=== PATIENT | female | born 1950 | race Caucasian/White ===

== ENCOUNTER 2017-12-16 06:20 | Day surgery (SDC) | payer OTHER ==
[~2017-12-16] VITALS: Ht 172.7 cm; Wt 108.9 kg
[2017-12-16] VITALS (15 sets, daily range): BP systolic 102–140; BP diastolic 49–79
[~2017-12-16 06:20] MED LIST: Clindamycin 600mg 50 ML IV ONE; celeBREX 200mg Cap **SURGERY PATIENTS ONLY ORAL ONE; oxyCONTIN 20mg tab ORAL ONE
[2017-12-16] MEDS ORDERED: Dexamethasone 4mg/ml vial ONE (06:21)
[2017-12-16] MEDS ORDERED: Zemuron 50mg/5ml Inj IV ONE (06:21)
[2017-12-16] MEDS ORDERED: Sterile Water Irrig 1000ml IRRIG ONE (06:21)
[2017-12-16] MEDS ORDERED: NS Irrig 1000ml ONE (06:21)
[2017-12-16] MEDS ORDERED: Metoclopramide 10mg/2ml Inj ONE (06:21)
[2017-12-16] MEDS ORDERED: MONTELUKAST SOD10 MG ORAL (07:14)
[2017-12-16] MEDS ORDERED: SIMVASTATIN20 MG ORAL (07:14)
[2017-12-16] MEDS ORDERED: SPIRIVA18 MCG INH (07:14)
[2017-12-16] MEDS ORDERED: NORTRIPTYLINE H75 MG PO (07:14)
[2017-12-16] MEDS ORDERED: VENLAFAXINE HC150 MG ORAL (07:14)
[2017-12-16] MEDS ORDERED: NAMENDA10 MG ORAL (07:14)
[2017-12-16] MEDS ORDERED: CALCIUM600 M1 PO (07:14)
[2017-12-16] MEDS ORDERED: ADVAIR 250-501 EACH INH (07:14)
[2017-12-16] MEDS ORDERED: [UNRECOGNIZED DRUG - OTHER] PO (07:14)
[2017-12-16] MEDS ORDERED: ZANTAC150 MG ORAL (07:14)
--- NOTE | 2017-12-16 07:36 | Pre-Procedure Note/Attestation ---
Pre-Procedure Note/Attestation Complete Prior to Procedure Planned Procedure: left Procedure Narrative: Shoulder arthroscopy, sad Indications for Procedure Pre-Operative Diagnosis: left shoulder impingement, possible labral derangement Attestation I attest that I discussed the nature of the procedure; its benefits; risks and complications; and alternatives (and the risks and benefits of such alternatives ), prior to the procedure, with the patient (or the patient's legal human resources hr representative). I attest that, if there was a reasonable possibility of needing a blood transfusion, the patient (or the patient's legal human resources hr representative) was given the [facility] standardized written summary, pursuant to the [place] Blood Safety Act ([place] Health and Safety Code # 1645, as amended). I attest that I re-evaluated the patient just prior to the surgery and that there has been no change in the patient's H&P, except as documented below: Ryan Driscoll MD December 16, 2017 07:36
--- NOTE | 2017-12-16 07:38 | Operative Note - PDOC ---
Operative Note Operative Note Pre-op Diagnosis: left shoulder impingement, possible labral derangement Procedure: left shoulder arthroscopy, sad, possible labral repair Post-op Diagnosis: same as pre-op plus Operative Findings: consistent w/pre-op dx studies Anesthesia: regional Specimen: none Complications: none Condition: stable Implant(s) used?: No Ryan Driscoll MD December 16, 2017 07:38
[2017-12-16] MEDS ORDERED: D5 1/2NS 1,000 ML IV SCH (07:45)
[2017-12-16] MEDS ORDERED: Tylenol #3 tab (300mg/30mg) ORAL PRN (07:45)
[2017-12-16] MEDS ORDERED: Norco 5mg/325mg tab ORAL PRN (07:45)
[2017-12-16] MEDS ORDERED: fentaNYL 100 mcg/2 mL IV ONE ×2 (07:52→08:34)
[2017-12-16] MEDS ORDERED: Midazolam 2mg/2ml Inj ONE ×3 (07:52→09:56)
[2017-12-16] MEDS ORDERED: EPINEPHrine 1mg/1ml Amp ONE (08:32)
[2017-12-16] MEDS ORDERED: Bupivacaine 0.25% Inj 30ml INJ ONE (08:32)
[2017-12-16] MEDS ORDERED: Lidocaine 1% 10mg/ml/Epi 0.005mg/ml 30ml vial INJ ONE (08:32)
[2017-12-16] MEDS ORDERED: Lidocaine 1% MPF 10mg/ml 5ml ONE (08:34)
[2017-12-16] MEDS ORDERED: Propofol 200mg/20ml IV ONE (08:34)
[2017-12-16] MEDS ORDERED: LR 1000ml 1,000 ML IVLG SCH (09:10)
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
[2017-12-16] MEDS ORDERED: fentaNYL 100 mcg/2 mL IV PRN (09:15)
[2017-12-16] MEDS ORDERED: DiphenhydrAMINE 50mg/ml Inj IVP PRN (09:15)
[2017-12-16] MEDS ORDERED: NS Irrig 4000ml IRRIG ONE (09:15)
[2017-12-16] MEDS ORDERED: LORazepam Inj 2mg/ml 1ml IV PRN (09:15)
[2017-12-16] MEDS ORDERED: Midazolam 2mg/2ml Inj IVP PRN (09:15)
--- NOTE | 2017-12-16 09:44 | Immediate Post-Op Evaluation ---
Immediate Post-Op Evalulation Immediate Post-Op Evalulation Procedure: Left shoulder arthroscopy Date of Evaluation: December 16, 2017 Time of Evaluation: 10:50 IV Fluids: 600 Blood Products: 0 Estimated Blood Loss: min Urinary Output: 0 Blood Pressure Systolic: 115 Blood Pressure Diastolic: 66 Pulse Rate: 72 Respiratory Rate: 17 O2 Sat by Pulse Oximetry: 96 Temperature (Fahrenheit): 98.2 Pain Score (1-10): 0 Nausea: No Vomiting: No Complications 0 Patient Status: awake, reacts, patent, none Hydration Status: adequate Drug: Clindamycin 600mg Given Within 1 Hr of Incision: Yes Time Given: 09:30 MIGUEL ÁNGEL DEGROOT M.D. December 16, 2017 09:44
--- NOTE | 2017-12-16 09:46 | 48 Hour Post Anesthesia Eval ---
Post Anesthesia Evaluation Procedure: Left shoulder arthroscopy Date of Evaluation: December 16, 2017 Time of Evaluation: 12:50 Blood Pressure Systolic: 121 0: 49 Pulse Rate: 75 Respiratory Rate: 18 Temperature (Fahrenheit): 97.3 O2 Sat by Pulse Oximetry: 97 Airway: patent Nausea: No Vomiting: No Pain Intensity: 0 Hydration Status: adequate Cardiopulmonary Status: at baseline Mental Status/LOC: patient returned to baseline Post-Anesthesia Complications: 0 Follow-up care needed: ready to discharge MIGUEL ÁNGEL DEGROOT M.D. December 16, 2017 09:46
[2017-12-16] MEDS ORDERED: Ketamine 500mg Inj ONE (09:56)
[2017-12-16] MEDS ORDERED: Acetaminophen (Non formulary) 100 ML IV SCH (10:00)
--- NOTE | 2017-12-16 18:46 | Operative Note - Dictated ---
DATE OF OPERATION: 12/16/2017 PREOPERATIVE DIAGNOSES: 1. Left shoulder posterior labral tear. 2. Left shoulder biceps tenosynovitis. 3. Left shoulder impingement. 4. Left shoulder rotator cuff tendinosis. POSTOPERATIVE DIAGNOSES: 1. Left shoulder anterior and superior labral tear. 2. Left shoulder partial articular-sided rotator cuff tear. 3. Left shoulder impingement syndrome. PROCEDURE: 1. Left shoulder diagnostic arthroscopy. 2. Debridement of anterior/superior labral tear. 3. Debridement/repair of partial articular-sided rotator cuff tear. 4. Subacromial decompression bursectomy. SURGEON: Ryan Driscoll M.D. ANESTHESIA: Interscalene with general. INDICATION FOR PROCEDURE: The patient is a pleasant female who has had significant left shoulder pain and difficulty with overhead activities. She had MRI, which showed evidence of possible posterior labral tear as well as tenosynovitis along with some impingement on radiographic findings. After failing conservative treatment, she elected to undergo left shoulder diagnostic arthroscopy with possible labral repair versus debridement with concurrent subacromial decompression bursectomy. Risks, limitations, expectations, complications of procedure were discussed in detail. All questions were addressed. DESCRIPTION OF PROCEDURE: After informed consent was obtained, the patient was brought to the operating room and placed supine under interscalene with general anesthesia. The patient was then carefully placed in beach-chair position. Left shoulder was prepped and draped in sterile manner. Time-out was performed. A posterolateral stab incision was then made. Trocar was introduced in the shoulder joint. No significant chondral damage. Noted some erythema of the anterior labrum and tearing that extended to the superior labrum. Biceps tendon appeared to be intact. The undersurface of the rotator cuff had a partial articular-sided rotator cuff tear. Medial working portal was established and debridement of the labral tear was performed anterior and superior down to stable rim of tissue. The superior labrum appeared to be intact and did not require formal fixation with an anchor. The undersurface of the supraspinatus identified. Once the tear was visualized, the debridement of the articular-sided partial rotator cuff tear was performed. At this point, the camera was placed in the anterior portal. Posterior labrum was noted to be intact. The camera was then placed in the subacromial space. The hypertrophic bursal tissue was all debrided. The undersurface of the acromion was identified. Acromioplasty was started from lateral to medial and completed posterior to anterior. Once this was done, the bursal side of the rotator cuff was evaluated and noted to be intact. At this point, the instruments were removed. Portal sites were closed with 3-0 Monocryl sutures. Steri-Strips and sterile dressing were applied. The patient was awoken and taken to recovery room with stable vital signs. ESTIMATED BLOOD LOSS: None. COMPLICATIONS: None. SPECIMENS: None. IMPLANTS: None. Ryan Driscoll M.D. DR: Chelsy JOB#: [id number] CC:
== END 2017-12-16 13:20 | disposition home or self-care (01) ==
LOC: SUR 06:20
DX: S43.402A Unspecified sprain of left shoulder joint, initial encounter (principal); M75.112 Incomplete rotator cuff tear or rupture of left shoulder, not specified as traumatic; M75.42 Impingement syndrome of left shoulder; E78.5 Hyperlipidemia, unspecified; K21.9 Gastro-esophageal reflux disease without esophagitis; F41.9 Anxiety disorder, unspecified; F32.9 Major depressive disorder, single episode, unspecified; Z85.42 Personal history of malignant neoplasm of other parts of uterus; Z88.0 Allergy status to penicillin; Z87.891 Personal history of nicotine dependence
CPT/HCPCS: 29823; J0171; J0690; J1100; J2250; J2405; J2704; J2765; J3010; J3490; S0077

== ENCOUNTER 2018-03-31 07:09 | Day surgery (SDC) | payer OTHER ==
[2018-03-31] VITALS (9 sets, daily range): BP systolic 111–145; BP diastolic 65–76
[~2018-03-31] VITALS: Ht 172.7 cm; Wt 115.2 kg
[~2018-03-31 07:09] MED LIST changes: +ADVAIR 250-501 EACH INH; +CALCIUM600 M1 PO; +MONTELUKAST SOD10 MG ORAL; +NAMENDA10 MG ORAL; +NORTRIPTYLINE H75 MG PO; +SIMVASTATIN20 MG ORAL; +SPIRIVA18 MCG INH; +VENLAFAXINE HC150 MG ORAL; +ZANTAC150 MG ORAL; +[UNRECOGNIZED DRUG - OTHER] PO
--- NOTE | 2018-03-31 10:44 | Operative Note - PDOC ---
Operative Note Operative Note Pre-op Diagnosis: left wrist painful hardware Procedure: see op report Post-op Diagnosis: same as pre-op Anesthesia: MAC Specimen: none Complications: none Condition: stable Estimated Blood Loss: none Implant(s) used?: No Ryan Driscoll MD Mar 31, 2018 10:44
--- NOTE | 2018-03-31 10:44 | Pre-Procedure Note/Attestation ---
Pre-Procedure Note/Attestation Complete Prior to Procedure Planned Procedure: left Procedure Narrative: wrist removal painful hardware Indications for Procedure Pre-Operative Diagnosis: left wrist painful hardware Attestation I attest that I discussed the nature of the procedure; its benefits; risks and complications; and alternatives (and the risks and benefits of such alternatives ), prior to the procedure, with the patient (or the patient's legal healthcare sales representative). I attest that, if there was a reasonable possibility of needing a blood transfusion, the patient (or the patient's legal healthcare sales representative) was given the [facility] standardized written summary, pursuant to the [place] Blood Safety Act ([place] Health and Safety Code # 1645, as amended). I attest that I re-evaluated the patient just prior to the surgery and that there has been no change in the patient's H&P, except as documented below: Ryan Driscoll MD Mar 31, 2018 10:44
[2018-03-31] MEDS ORDERED: D5 1/2NS 1,000 ML IV SCH (10:45)
[2018-03-31] MEDS ORDERED: HYDROmorphone 1mg/ml Carpuject SUBQ PRN (10:45)
[2018-03-31] MEDS ORDERED: Tylenol #3 tab (300mg/30mg) ORAL PRN (10:45)
[2018-03-31] MEDS ORDERED: Norco 5mg/325mg tab ORAL PRN (10:45)
[2018-03-31] MEDS ORDERED: Morphine Sulfate PF 10 ML ONE (10:50)
[2018-03-31] MEDS ORDERED: Bacitracin 50000 Units Vial ONE (10:51)
[2018-03-31] MEDS ORDERED: NeoSporin Gu Irrig 1ml Amp IRRIG ONE (10:51)
[2018-03-31] MEDS ORDERED: Kenalog-40 1ml Vial ONE (10:51)
[2018-03-31] MEDS ORDERED: Ketorolac 30mg Inj ONE (10:51)
[2018-03-31] MEDS ORDERED: Bupivacaine 0.5% Inj 30 ml vial INJ ONE ×2 (10:51→12:00)
[2018-03-31] MEDS ORDERED: celeBREX 200mg Cap **SURGERY PATIENTS ONLY ORAL ONE (11:20)
[2018-03-31] MEDS ORDERED: oxyCONTIN 20mg tab ORAL ONE (11:20)
[2018-03-31] MEDS ORDERED: NS Irrig 1000ml ONE (11:30)
[2018-03-31] MEDS ORDERED: LR 1000ml ONE (11:30)
[2018-03-31] MEDS ORDERED: Ketorolac 30mg Inj IM ONE (12:00)
[2018-03-31] MEDS ORDERED: Bacitracin 50000 Units Vial IRRIG ONE (12:00)
[2018-03-31] MEDS ORDERED: NS Irrig 4000ml IRRIG ONE (12:00)
[2018-03-31] MEDS ORDERED: Kenalog-40 1ml Vial INJ ONE (12:00)
[2018-03-31] MEDS ORDERED: Duramorph PF 10mg/10ml amp IT ONE (12:00)
--- NOTE | 2018-03-31 12:07 | Anethesia Preoperative Eval ---
Anesthesia Pre-op PMH/ROS General Date of Evaluation: Mar 31, 2018 Time of Evaluation: 11:20 Anesthesiologist: Amari ASA Score: ASA 3 Mallampati Score Class I : Soft palate, uvula, fauces, pillars visible Class II: Soft palate, uvula, fauces visible Class III: Soft palate, base of uvula visible Class IV: Only hard plate visible Mallampati Classification: Class II Surgeon: Americo Diagnosis: L wrist pain Surgical Procedure: L wrist hardwear removal Anesthesia History: none Family History: no anesthesia problems Allergies: Coded Allergies: PENICILLINS (Verified Allergy, Unknown, 12/15/17) Past Medical History Cardiovascular: Denies: HTN, CAD, [place], valve dz, arrhythmia, other Pulmonary: Reports: COPD; Denies: asthma, FELIPA, other Gastrointestinal/Genitourinary: Reports: GERD; Denies: CRI, ESRD, other Neurologic/Psychiatric: Reports: depression/anxiety; Denies: dementia, CVA, TIA, other Endocrine: Denies: DM, hypothyroidism, steroids, other HEENT: Denies: cataract (L), cataract (R), glaucoma, [place] (L), [place] (R), other Hematology/Immune: Reports: anemia Musculoskeletal/Integumentary: Reports: DJD; Denies: OA, RA, DDD, edema, other Other: obesity PMH Narrative: as above PSxH Narrative: Hysterectomy, shoulder, wrist ORIF Anesthesia Pre-op Phys. Exam Physician Exam Last Vital Signs Date Time Temp Pulse Resp B/P (MAP) Pulse Ox O2 Delivery O2 Flow Rate FiO2 03/31/18 11:34 Room Air 03/31/18 11:31 98.1 83 18 142/74 (96) 94 98.1 Constitutional: NAD Neurologic: CN 2-12 intact Cardiovascular: RRR, no M/R/G Respiratory: other - some wheezing bilaterally Gastrointestinal: other - obesity Airway Exam Mallampati Score: Class III MO: limited Neck: short ROM: limited Teeth: missing Dentures: no upper, no lower Anesthesia Pre-op A/P Labs see chart Studies Pre-op Studies: EKG - NSR Risk Assessment & Plan Assessment: ASA 3 Plan: GA with LMA Status Change Before Surgery: No Pre-Antibiotics Drug: Ancef 1gr. Given Within 1 Hr of Incision: Yes Time Given: 11:54 Mario Fitzpatrick MD Mar 31, 2018 12:07
[2018-03-31] MEDS ORDERED: LR 1000ml 1,000 ML IVLG SCH (12:08)
[2018-03-31] MEDS ORDERED: fentaNYL 100 mcg/2 mL IV PRN (12:15)
[2018-03-31] MEDS ORDERED: DiphenhydrAMINE 50mg/ml Inj IVP PRN (12:15)
[2018-03-31] MEDS ORDERED: Ketorolac 30mg Inj IV PRN (12:15)
[2018-03-31] MEDS ORDERED: Midazolam 2mg/2ml Inj IVP PRN (12:15)
[2018-03-31] MEDS ORDERED: Lidocaine 1% MPF 10mg/ml 5ml ONE (12:44)
[2018-03-31] MEDS ORDERED: Propofol 200mg/20ml IV ONE (12:44)
--- NOTE | 2018-03-31 13:33 | Immediate Post-Op Evaluation ---
Immediate Post-Op Evalulation Immediate Post-Op Evalulation Procedure: Removal of retained hardwear L wrist Date of Evaluation: Mar 31, 2018 Time of Evaluation: 13:31 IV Fluids: 800 Blood Products: none Estimated Blood Loss: min Urinary Output: none Blood Pressure Systolic: 140 Blood Pressure Diastolic: 74 Pulse Rate: 86 Respiratory Rate: 20 O2 Sat by Pulse Oximetry: 97 Temperature (Fahrenheit): 97.6 Pain Score (1-10): 2 Nausea: No Vomiting: No Complications none L axillary block at the end of surgery by surgeon request Patient Status: reacts, patent, none Hydration Status: adequate Mario Fitzpatrick MD Mar 31, 2018 13:33
--- NOTE | 2018-03-31 16:20 | 48 Hour Post Anesthesia Eval ---
Post Anesthesia Evaluation Procedure: Removal of retained hardwear L wrist Date of Evaluation: Mar 31, 2018 Time of Evaluation: 16:19 Blood Pressure Systolic: 145 0: 67 Pulse Rate: 68 Respiratory Rate: 20 Temperature (Fahrenheit): 97.8 O2 Sat by Pulse Oximetry: 99 Airway: patent Nausea: No Vomiting: No Pain Intensity: 2 Hydration Status: adequate Cardiopulmonary Status: stable Mental Status/LOC: patient returned to baseline Follow-up Care/Observations: n/a Post-Anesthesia Complications: none Follow-up care needed: ready to discharge Mario Fitzpatrick MD Mar 31, 2018 16:20
--- NOTE | 2018-03-31 21:15 | Operative Note - Dictated ---
DATE OF OPERATION: 03/31/2018 PREOPERATIVE DIAGNOSES: 1. Painful left wrist hardware, status post ORIF. 2. Left distal radius malunion. PROCEDURE: 1. Left wrist removal of painful hardware. 2. of tenosynovitis, left wrist flexor tendon. SURGEON: Ryan Driscoll M.D. ANESTHESIA: MAC with local. INDICATION FOR PROCEDURE: The patient is a pleasant female with a significant injury to her left wrist, underwent open reduction and internal fixation, had continued pain in the volar aspect of the left wrist. The patient was noted to have malunion of the lunate facet, but also concerned that maybe the hardware was causing some pain. Therefore, she elected to undergo removal of the hardware, tenolysis of the flexor tendons. Risks, limitations, expectations, and complications of procedure were discussed in detail including continued pain, need for future surgery, risk of anesthesia, medical complications, etc. All questions were addressed. DESCRIPTION OF PROCEDURE: After informed consent was obtained, the patient was brought to the operating room. The patient was placed under general anesthesia. The previous skin incision was marked out. Esmarch was used to exsanguinate the extremity. The skin was incised. Subcutaneous flaps were created of the flexor tendon. The FCR tendon was identified and mobilized. There were significant adhesions, this was on the volar surface, which were released. Once that was done, careful dissection to the volar surface of the wrist was performed. The plate was then identified. All the screws and plates were removed with care. Once the hardware was removed, it was noted that the lunate fossa was displaced volarly, however, it was fused. At this point, the wound was copiously irrigated. The subcutaneous tissue was approximated with 2-0 Vicryl and 3-0 Monocryl sutures. Steri-Strips and a sterile dressing were applied. The patient was awoken and taken to recovery room with stable vital signs. ESTIMATED BLOOD LOSS: None. COMPLICATIONS: None. SPECIMENS: None. EXPLANTS: Include a volar plate with multiple screws. Ryan Driscoll M.D. DR: Chelsy JOB#: [id number] CC:
== END 2018-03-31 15:00 | disposition home or self-care (01) ==
LOC: SUR 07:09
DX: Z47.2 Encounter for removal of internal fixation device (principal); S52.502A Unspecified fracture of the lower end of left radius, initial encounter for closed fracture; J45.909 Unspecified asthma, uncomplicated; K21.9 Gastro-esophageal reflux disease without esophagitis; R09.82 Postnasal drip; E66.9 Obesity, unspecified; E78.5 Hyperlipidemia, unspecified; M19.90 Unspecified osteoarthritis, unspecified site; D64.9 Anemia, unspecified; J44.9 Chronic obstructive pulmonary disease, unspecified; F32.9 Major depressive disorder, single episode, unspecified; F41.9 Anxiety disorder, unspecified; Z87.891 Personal history of nicotine dependence; Z85.42 Personal history of malignant neoplasm of other parts of uterus; Z90.710 Acquired absence of both cervix and uterus; Z90.722 Acquired absence of ovaries, bilateral; Z90.79 Acquired absence of other genital organ(s); Z88.0 Allergy status to penicillin
CPT/HCPCS: 20680; 25295; J0690; J1885; J2250; J2274; J2704; J3010; J3301; J3490; J7120; 94003; 94150

== ENCOUNTER 2018-05-11 16:34 | Inpatient (IN) | payer OTHER ==
[~2018-05-11] VITALS: Ht 172.7 cm; Wt 115.9 kg
[~2018-05-11 16:34] MED LIST changes: -Clindamycin 600mg 50 ML IV ONE; -celeBREX 200mg Cap **SURGERY PATIENTS ONLY ORAL ONE; -oxyCONTIN 20mg tab ORAL ONE
[2018-05-11 16:59] VITALS: BP 143/74
[2018-05-11] MEDS ORDERED: DOXYCYCLINE HY100 M2 PO (17:04)
[2018-05-11] MEDS ORDERED: Albuterol ud Inhalation HHN ONE (17:15)
[2018-05-11] MEDS ORDERED: Solu-MEDROL 125mg Inj IVP ONE (17:30)
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
[2018-05-11] MEDS: Ipratropium 0.02% Inh Soln 2.5ml UD HHN SCH ×3 (17:43→18:19)
[2018-05-11] MEDS: Albuterol ud Inhalation HHN SCH ×3 (17:43→18:19)
[2018-05-11 17:51] LABS: ANION GAP 12 mmol/L (5-15); BLOOD UREA NITROGEN 15 mg/dL (7-18); CALCIUM 9.1 MG/DL (8.5-10.1); CARBON DIOXIDE 23 MMOL/L (21-32); CHLORIDE 101 MMOL/L (98-107); SODIUM 136 MMOL/L (136-145)
[2018-05-11 17:54] LABS: BASOPHILS % (AUTO) 0.8 % (0.0-2.0); EOSINOPHILS % (AUTO) 0.4 % (0.0-3.0); HEMATOCRIT 37.3 % (37.0-47.0); HEMOGLOBIN 12.6 G/DL (12.0-16.0); LYMPHOCYTES % (AUTO) 9.8 % (20.0-45.0); MEAN CORPUSCULAR VOLUME 86 FL (80-99); MONOCYTES % (AUTO) 10.8 % (1.0-10.0); NEUTROPHILS % (AUTO) 78.1 % (45.0-75.0); PLATELET COUNT 275 K/UL (150-450); RED BLOOD COUNT 4.36 M/UL (4.20-5.40); RED CELL DISTRIBUTION WIDTH 12.8 % (11.6-14.8); WHITE BLOOD COUNT 15.1 K/UL (4.8-10.8)
[2018-05-11 17:55] LABS: ALANINE AMINOTRANSFERASE 28 U/L (12-78); ALBUMIN 3.4 G/DL (3.4-5.0); ALBUMIN/GLOBULIN RATIO 0.7 (1.0-2.7); ALKALINE PHOSPHATASE 118 U/L (46-116); ASPARTATE AMINO TRANSFERASE 15 U/L (15-37); BILIRUBIN,TOTAL 0.5 MG/DL (0.2-1.0)
[2018-05-11 19:57] LABS: APPEARANCE,URINE CLEAR; BILIRUBIN, URINE NEGATIVE (NEGATIVE); COLOR,URINE PALE YELLOW; GLUCOSE, URINE (UA) NEGATIVE (NEGATIVE); KETONES,URINE NEGATIVE (NEGATIVE); LEUKOCYTE ESTERASE ,URINE NEGATIVE (NEGATIVE); NITRITE,URINE NEGATIVE (NEGATIVE); PH,URINE 7 (4.5-8.0); PROTEIN,URINE NEGATIVE (NEGATIVE); UROBILINOGEN,URINE NORMAL MG/DL (0.0-1.0)
[2018-05-11 21:01] VITALS: BP 127/75
[2018-05-11] MEDS: Albuterol/Ipratropium 3ml neb HHN SCH ×11 (21:10→23:45)
[2018-05-12] VITALS: BP 133/69
[2018-05-12] MEDS: Albuterol/Ipratropium 3ml neb HHN SCH ×22 (00:15→20:31)
[2018-05-12] MEDS: Nortriptyline 25mg cap ORAL SCH ×2 (02:42→21:07)
[2018-05-12] MEDS: cefTRIAXone 1 GM in D5W 55 ML IVPB SCH (03:14)
[2018-05-12 04:00] VITALS: BP 114/59
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
[2018-05-12] MEDS: Solu-MEDROL 40mg Inj IVP SCH ×3 (05:28→21:07)
[2018-05-12] MEDS: Heparin 5000 units/ml inj SUBQ SCH ×3 (05:30→21:10)
[2018-05-12 08:00] VITALS: BP 124/64
[2018-05-12] MEDS: Calcium Carbonate 500mg w/Vit D 200iu tab ORAL SCH ×2 (08:48→17:12)
[2018-05-12] MEDS: Memantine 10mg tab ORAL SCH ×2 (08:49→17:13)
[2018-05-12] MEDS: Azithromycin 250mg tab ORAL SCH (08:49)
[2018-05-12] MEDS: Advair 250/50 Inhaler - 14 dose INH SCH ×2 (08:49→20:44)
[2018-05-12] MEDS ORDERED: Venlafaxine XR 150mg cap ORAL SCH (09:00)
--- NOTE | 2018-05-12 10:38 | Diagnostic Imaging Report ---
Indication: Shortness of breath Technique: One view of the chest Comparison: none Findings: Atelectatic changes are seen at the right lung base. There is left perihilar atelectasis. There is mild elevation of the left hemidiaphragm. The heart is borderline enlarged. Impression: Bilateral atelectasis. No acute process otherwise Borderline cardiomegaly
[2018-05-12 11:56] VITALS: BP 106/64
[2018-05-12] MEDS ORDERED: OMEPRAZOLE20 M2 ORAL (13:55)
[2018-05-12 16:01] VITALS: BP 147/72
[2018-05-12] MEDS: Montelukast 10mg tablet ORAL SCH (17:13)
[2018-05-12 20:00] VITALS: BP 134/77
[2018-05-12] MEDS: Venlafaxine XR 150mg cap ORAL SCH (21:07)
[2018-05-13] VITALS: BP 155/82
[2018-05-13] MEDS: cefTRIAXone 1 GM in D5W 55 ML IVPB SCH ×2 (00:14→23:38)
[2018-05-13] MEDS: Albuterol/Ipratropium 3ml neb HHN SCH ×7 (01:12→22:46)
[2018-05-13 04:00] VITALS: BP 150/78
[2018-05-13] MEDS: Heparin 5000 units/ml inj SUBQ SCH ×3 (06:00→21:21)
[2018-05-13 06:55] LABS: HEMATOCRIT 35.4 % (37.0-47.0); HEMOGLOBIN 11.8 G/DL (12.0-16.0); MEAN CORPUSCULAR VOLUME 84 FL (80-99); PLATELET COUNT 276 K/UL (150-450); RED BLOOD COUNT 4.21 M/UL (4.20-5.40); RED CELL DISTRIBUTION WIDTH 12.7 % (11.6-14.8); WHITE BLOOD COUNT 15.4 K/UL (4.8-10.8)
[2018-05-13 07:02] LABS: ALANINE AMINOTRANSFERASE 28 U/L (12-78); ALBUMIN 3.2 G/DL (3.4-5.0); ALBUMIN/GLOBULIN RATIO 0.7 (1.0-2.7); ASPARTATE AMINO TRANSFERASE 17 U/L (15-37); BLOOD UREA NITROGEN 21 mg/dL (7-18)
[2018-05-13 07:29] LABS: ALKALINE PHOSPHATASE 101 U/L (46-116); ANION GAP 10 mmol/L (5-15); BILIRUBIN,TOTAL 0.1 MG/DL (0.2-1.0); CALCIUM 9.6 MG/DL (8.5-10.1); CARBON DIOXIDE 24 MMOL/L (21-32); CHLORIDE 106 MMOL/L (98-107); CHOLESTEROL 161 MG/DL (< 200); CREATINE KINASE 277 U/L (26-308); CREATININE 1.1 MG/DL (0.55-1.30); HDL CHOLESTEROL 46 MG/DL (40-60); POTASSIUM 3.8 MMOL/L (3.5-5.1); SODIUM 140 MMOL/L (136-145); TRIGLYCERIDES 92 MG/DL (30-150)
[2018-05-13 08:00] VITALS: BP 147/78
[2018-05-13] MEDS: Advair 250/50 Inhaler - 14 dose INH SCH ×2 (08:59→17:34)
[2018-05-13] MEDS: Azithromycin 250mg tab ORAL SCH (09:35)
[2018-05-13] MEDS: Solu-MEDROL 40mg Inj IVP SCH (09:35)
[2018-05-13] MEDS: Calcium Carbonate 500mg w/Vit D 200iu tab ORAL SCH ×2 (09:35→17:41)
[2018-05-13] MEDS: Memantine 10mg tab ORAL SCH ×2 (09:36→17:41)
--- NOTE | 2018-05-13 10:37 | Diagnostic Imaging Report ---
Chest PA and lateral views INDICATION: Cough COMPARISON: Chest x-ray dated 05/11/18 FINDINGS: PA and lateral views of the chest are obtained. The cardiomediastinal silhouette is within normal limits. Stable linear bands are seen in bilateral lower lung zones. Increased pulmonary markings suggestive of congestion. No pleural effusions. Bony elements are within normal limits. IMPRESSION: Stable linear bands are seen in bilateral lower lung zones. Increased pulmonary markings suggestive of congestion.
[2018-05-13 12:00] VITALS: BP 138/71
[2018-05-13 16:00] VITALS: BP 139/76
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
[2018-05-13] MEDS: Montelukast 10mg tablet ORAL SCH (16:30)
[2018-05-13] MEDS ORDERED: Solu-MEDROL 40mg Inj IVP SCH (18:00)
[2018-05-13 20:00] VITALS: BP 143/73
[2018-05-13] MEDS: Venlafaxine XR 150mg cap ORAL SCH (20:45)
[2018-05-13] MEDS: Nortriptyline 25mg cap ORAL SCH (20:45)
[2018-05-14] VITALS: BP 132/71
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
[2018-05-14] MEDS: Albuterol/Ipratropium 3ml neb HHN SCH ×6 (02:45→22:57)
[2018-05-14 04:00] VITALS: BP 147/74
[2018-05-14] MEDS: Heparin 5000 units/ml inj SUBQ SCH ×3 (06:03→21:16)
[2018-05-14] MEDS: Solu-MEDROL 40mg Inj IVP SCH ×2 (06:05→17:44)
[2018-05-14 06:36] LABS: HEMATOCRIT 33.8 % (37.0-47.0); HEMOGLOBIN 11.3 G/DL (12.0-16.0); MEAN CORPUSCULAR VOLUME 84 FL (80-99); PLATELET COUNT 282 K/UL (150-450); RED BLOOD COUNT 4.02 M/UL (4.20-5.40); RED CELL DISTRIBUTION WIDTH 12.9 % (11.6-14.8); WHITE BLOOD COUNT 11.4 K/UL (4.8-10.8)
[2018-05-14 07:14] LABS: ALANINE AMINOTRANSFERASE 32 U/L (12-78); ALBUMIN 3.1 G/DL (3.4-5.0); ALBUMIN/GLOBULIN RATIO 0.8 (1.0-2.7); ALKALINE PHOSPHATASE 94 U/L (46-116); ANION GAP 8 mmol/L (5-15); ASPARTATE AMINO TRANSFERASE 19 U/L (15-37); BILIRUBIN,TOTAL 0.1 MG/DL (0.2-1.0); BLOOD UREA NITROGEN 20 mg/dL (7-18); CALCIUM 9.3 MG/DL (8.5-10.1); CARBON DIOXIDE 25 MMOL/L (21-32); CHLORIDE 106 MMOL/L (98-107); CREATININE 1.1 MG/DL (0.55-1.30); POTASSIUM 4.1 MMOL/L (3.5-5.1); SODIUM 139 MMOL/L (136-145)
[2018-05-14 07:59] VITALS: BP 127/70
[2018-05-14] MEDS: Advair 250/50 Inhaler - 14 dose INH SCH (08:33)
[2018-05-14] MEDS: Memantine 10mg tab ORAL SCH ×2 (09:11→17:44)
[2018-05-14] MEDS: Calcium Carbonate 500mg w/Vit D 200iu tab ORAL SCH ×2 (09:11→17:44)
[2018-05-14] MEDS: Azithromycin 250mg tab ORAL SCH (09:11)
[2018-05-14 11:51] VITALS: BP 131/73
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
[2018-05-14 16:00] VITALS: BP 138/71
[2018-05-14] MEDS: Montelukast 10mg tablet ORAL SCH (16:28)
[2018-05-14 20:00] VITALS: BP 146/78
[2018-05-14] MEDS: Venlafaxine XR 150mg cap ORAL SCH (21:14)
[2018-05-14] MEDS: Nortriptyline 25mg cap ORAL SCH (21:15)
--- NOTE | 2018-05-14 23:45 | Progress Note ---
DATE: 05/14/2018 INTERNAL MEDICINE PROGRESS NOTE SUBJECTIVE: The patient is still congested and wheezing. She is unable to bring up any secretions. She remains on IV steroids. Oxygen saturation remains 92% to 98% on 2 L. OBJECTIVE: HEENT: She is hoarse. There is some nasal congestion. LUNGS: With coarse expiratory wheezing and rhonchi. CARDIAC: Regular rhythm and rate. Normal S1, S2 with no murmur. ABDOMEN: Soft, nontender. EXTREMITIES: Trace edema. LABORATORY AND DIAGNOSTIC DATA: White count 11.4, hemoglobin 11.3. BUN 20, creatinine 1.1, potassium 4.1, albumin 3.1. Pro-natriuretic peptide 160. Blood culture is negative. Chest x-ray yesterday revealed linear bands in lower lung zones with increased pulmonary markings. IMPRESSION: 1. COPD exacerbation. 2. Pneumonitis. 3. No signs of acute congestive heart failure. 4. Persistent bronchospasm. PLAN: 1. Plan of care in place with IV antibiotics, inhaled bronchodilators, intravenous steroids. 2. DVT and stress ulcer prophylaxis and anti-reflux measures. 3. Wean therapy when clinical condition improves. Chris Toth M.D. DR: Soy JOB#: [id number] CC:
[2018-05-14] MEDS: cefTRIAXone 1 GM in D5W 55 ML IVPB SCH (23:52)
[2018-05-15] VITALS: BP 127/75
[2018-05-15] MEDS: Albuterol/Ipratropium 3ml neb HHN SCH ×6 (03:00→23:19)
[2018-05-15 04:00] VITALS: BP 150/78
[2018-05-15] MEDS: Solu-MEDROL 40mg Inj IVP SCH ×2 (05:46→17:36)
[2018-05-15] MEDS: Heparin 5000 units/ml inj SUBQ SCH ×3 (05:49→21:34)
[2018-05-15 07:59] VITALS: BP 147/85
[2018-05-15] MEDS: Calcium Carbonate 500mg w/Vit D 200iu tab ORAL SCH ×2 (09:13→17:35)
[2018-05-15] MEDS: Azithromycin 250mg tab ORAL SCH (09:13)
[2018-05-15] MEDS: Memantine 10mg tab ORAL SCH ×2 (09:13→17:35)
[2018-05-15 12:00] VITALS: BP 131/67
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
--- NOTE | 2018-05-15 14:53 | Cardiology Report ---
APPROVED REPORT EKG Measurement Heart [id number] Normal sinus rhythm Normal ECG
[2018-05-15 16:00] VITALS: BP 146/73
[2018-05-15 20:00] VITALS: BP 116/78
[2018-05-15] MEDS: Nortriptyline 25mg cap ORAL SCH (21:34)
[2018-05-15] MEDS: Venlafaxine XR 150mg cap ORAL SCH (21:35)
[2018-05-15] MEDS: Advair 250/50 Inhaler - 14 dose INH SCH (21:36)
[2018-05-16] VITALS: BP 134/70
[2018-05-16] MEDS: cefTRIAXone 1 GM in D5W 55 ML IVPB SCH (00:29)
[2018-05-16] MEDS: Albuterol/Ipratropium 3ml neb HHN SCH ×6 (02:41→22:49)
[2018-05-16 04:00] VITALS: BP 148/80
--- NOTE | 2018-05-16 05:00 | Progress Note ---
DATE: 05/15/2018 INTERNAL MEDICINE PROGRESS NOTE SUBJECTIVE: The patient is slightly better today, but still congested and wheezing. She states that she only got one breathing treatment from 7 a.m. until 11 p.m. this evening. She was told that the staff was to be "busy." OBJECTIVE: VITAL SIGNS: Blood pressure 131/67, pulse 85, respiratory rate 18, and oxygen saturation is 92% to 95% on 2 L. LUNGS: Coarse breath sounds. Bilateral expiratory wheezes. The patient has less hoarse. HEART: Regular rhythm and rate. Normal S1 and S2. ABDOMEN: Soft. EXTREMITIES: Less edema. IMPRESSION: progress. PLAN: Plan of care updated. We will check sinus CT scan. We will also discuss with staff appropriate treatment schedule of inhaled bronchodilators with steroid taper as clinical condition improves. Chris Toth M.D. DR: CONCHA JOB#: [id number] CC:
[2018-05-16] MEDS: Solu-MEDROL 40mg Inj IVP SCH ×2 (06:02→17:30)
[2018-05-16] MEDS: Heparin 5000 units/ml inj SUBQ SCH ×3 (06:02→21:05)
[2018-05-16 08:00] VITALS: BP 124/71
[2018-05-16] MEDS: Calcium Carbonate 500mg w/Vit D 200iu tab ORAL SCH ×2 (08:20→17:30)
[2018-05-16] MEDS: Memantine 10mg tab ORAL SCH ×2 (08:21→17:30)
[2018-05-16] MEDS: Azithromycin 250mg tab ORAL SCH (08:21)
[2018-05-16] MEDS: Montelukast 10mg tablet ORAL SCH (08:21)
[2018-05-16] MEDS: Advair 250/50 Inhaler - 14 dose INH SCH ×2 (08:59→21:08)
[2018-05-16] MEDS ORDERED: Milk of Magnesia 30ml Ud ORAL PRN (10:45)
[2018-05-16] MEDS: Docusate 250mg cap ORAL SCH ×2 (11:04→17:30)
[2018-05-16 12:00] VITALS: BP 138/69
--- NOTE | 2018-05-16 14:26 | Diagnostic Imaging Report ---
Indication: Sinus congestion and pain Technique: Continuous helical transaxial imaging of the maxillofacial structures obtained without intravenous contrast administration. Coronal 2-D reformats were also obtained. Study obtained in a Siemens sensation [address] Automatic Exposure Control was utilized. Total Dose length Product (DLP): [address] Dose Index Volume (CTDIvol): 0.15, 28.19 mGy Comparison: None Findings: The paranasal sinuses are clear. There is a small focus of aeration in the left middle turbinate consistent with a demond bullosa. There is minimal deviation of the nasal septum toward the left. Mastoids are clear bilaterally. The TMJs are unremarkable bilaterally. Bones are osteopenic. IMPRESSION: Negative exam The CT scanner at [facility] is accredited by the [employer] and the scans are performed using dose optimization techniques as appropriate to a performed exam including Automatic Exposure control.
[2018-05-16 15:55] VITALS: BP 148/85
[2018-05-16 20:00] VITALS: BP 124/72
[2018-05-16] MEDS: Venlafaxine XR 150mg cap ORAL SCH (21:03)
[2018-05-16] MEDS: Nortriptyline 25mg cap ORAL SCH (21:04)
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
[2018-05-17] VITALS: BP 135/70
[2018-05-17] MEDS: cefTRIAXone 1 GM in D5W 55 ML IVPB SCH (00:28)
--- NOTE | 2018-05-17 01:45 | Progress Note ---
DATE: 05/16/2018 INTERNAL MEDICINE PROGRESS NOTE SUBJECTIVE: The patient has some improvement today. OBJECTIVE: VITAL SIGNS: Stable. Oxygen saturation on room air is 93%. LUNGS: Coarse breath sounds. Few wheezes. HEART: Regular rhythm and rate. Normal S1 and S2. ABDOMEN: Soft. EXTREMITIES: No edema. LABORATORY DATA: Cultures are negative. CAT scan reveals no active process. IMPRESSION: Improving slowly. PLAN: 1. Steroid taper. 2. Antimicrobials. 3. Inhaled bronchodilators. 4. Mobilization. 5. Anti-acid therapy. Chris Toth M.D. DR: MADI JOB#: [id number] CC:
[2018-05-17] MEDS: Albuterol/Ipratropium 3ml neb HHN SCH ×4 (03:25→15:02)
[2018-05-17 04:00] VITALS: BP 134/70
[2018-05-17] MEDS: Solu-MEDROL 40mg Inj IVP SCH (06:41)
[2018-05-17] MEDS: Heparin 5000 units/ml inj SUBQ SCH (06:43)
[2018-05-17 08:00] VITALS: BP 122/61
[2018-05-17] MEDS: Docusate 250mg cap ORAL SCH (08:16)
[2018-05-17] MEDS: Memantine 10mg tab ORAL SCH (08:16)
[2018-05-17] MEDS: Azithromycin 250mg tab ORAL SCH (08:16)
[2018-05-17] MEDS: Montelukast 10mg tablet ORAL SCH (08:16)
[2018-05-17] MEDS: Calcium Carbonate 500mg w/Vit D 200iu tab ORAL SCH (08:16)
[2018-05-17] MEDS: Advair 250/50 Inhaler - 14 dose INH SCH (08:52)
[2018-05-17 12:00] VITALS: BP 111/63
[2018-05-17] MEDS ORDERED: Fleet's Enema 133ml RECTAL PRN (13:30)
[2018-05-17] MEDS ORDERED: PREDNISONE20 MG ORAL (14:01)
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
== END 2018-05-17 15:45 | disposition home or self-care (01) | DRG 190 ==
LOC: EMR 17:42 → 4E 21:33 → EDBEDREQ 21:49
DX: J44.0 Chronic obstructive pulmonary disease with (acute) lower respiratory infection (principal); J18.9 Pneumonia, unspecified organism; E44.1 Mild protein-calorie malnutrition; J44.1 Chronic obstructive pulmonary disease with (acute) exacerbation; J20.9 Acute bronchitis, unspecified; N28.89 Other specified disorders of kidney and ureter; T38.0X5A Adverse effect of glucocorticoids and synthetic analogues, initial encounter; F31.9 Bipolar disorder, unspecified; R09.02 Hypoxemia; Z88.0 Allergy status to penicillin; Z87.891 Personal history of nicotine dependence
CPT/HCPCS: 36415; 70486; 71045; 71046; 80053; 80061; 81003; 82550; 82962; 83880; 84443; 84484; 85007; 85025; 87040; 93005; 94640; 94664; 94760; 96365; 96375; 99285; J7620